=== PATIENT | female | born 1945 | race Caucasian/White ===

== ENCOUNTER 2017-10-14 09:06 | Outpatient (CLI) | payer MEDICARE ==
--- NOTE | 2017-10-14 09:52 | RAD ---
THORACIC SPINE THREE VIEWS: History: Chronic back pain. FINDINGS: There are twelve thoracic type vertebrae. Pedicles are intact. Cervicothoracic junction is maintained . Vertebral body height and alignment are within normal limits. Scattered small Schmorl's nodes are a pparent. There is osteophytosis throughout the vertebral bodies and facets. Calcification is apparent within the aorta. There is rightward convex curvature of the thoracolumbar junction. IMPRESSION: 1. Thoracic spondylosis. No evidence of compression fracture. 2. Atherosclerosis. POS: PANFILO
== END 2017-10-14 09:07 | disposition home or self-care (01) ==
LOC: BURRAD 09:06
PROVIDERS: ATTEND Family Medicine
DX: M54.6 Pain in thoracic spine (principal); M47.894 Other spondylosis, thoracic region; I70.90 Unspecified atherosclerosis
CPT/HCPCS: 72070

== ENCOUNTER 2021-10-24 10:52 | Emergency (ER) | payer MEDICARE ==
[2021-10-24 12:48] LABS: #Monocytes 0.6 thou/uL (0.11-0.59); #Neutrophils 5.3 thou/uL (1.40-6.50); %Basophils 0.2 % (0.0-1.0); %Eosinophils 0.2 % (0.0-10.0); %Monocytes 8.8 % (0.0-10.0); %Neutrophils 76.8 % (42.0-75.0); Hemoglobin 15.1 g/dL (12.0-16.0); Mean Corpuscular HGB CONC 33.2 g/dL (32.0-36.0); Mean Corpuscular Hemoglobin 30.1 pg (27.0-31.0); Mean Corpuscular Volume 90.6 fL (78.0-98.0); Mean Platelet Volume 7.1 fL (7.4-10.4); Platelet Count 151 thou/uL (130-400); RBC Distribution Width 12.1 % (11.5-14.5); Red Blood Cell (RBC) Count 5.02 mill/uL (4.20-5.40); White Blood Cell (WBC) Count 6.9 thou/uL (4.8-10.8)
[2021-10-24 12:56] LABS: Bilirubin Negative (Negative); Blood, Urine Trace (Negative); Clarity Cloudy (Clear); Glucose, Urine (Dipstick) Negative (Negative); Ketone, Urine 15 mg/dL (Negative); Leukocyte Negative (Negative); Nitrite Positive (Negative); Protein, Urine (Dipstick) 100 mg/dL (Neg-Trace); Urobilinogen 0.2 mg/dL (Less than 2); pH, Urine 5.5 (5.0-9.0)
[2021-10-24 13:05] LABS: ALT (SGPT) 29 U/L (8-55); AST (SGOT) 43 U/L (5-34); Albumin 3.7 g/dL (3.4-4.8); Alkaline Phosphatase 73 U/L (40-110); Anion Gap 15 mmol/L (10-20); BUN (Urea Nitrogen) 17 mg/dL (9.8-20.1); Bilirubin, Total 0.4 mg/dL (0.2-1.2); Calc. Creatinine Clearance 0 mL/min (70-130); Calcium 8.8 mg/dL (7.8-10.44); Carbon Dioxide 25 mmol/L (23-31); Chloride 98 mmol/L (98-107); Globulin 3.5 g/dL (2.4-3.5); Glucose 122 mg/dL (83-110); Potassium 3.5 mmol/L (3.5-5.1); Protein, Total 7.2 g/dL (5.8-8.1); Sodium 134 mmol/L (136-145)
[2021-10-24 13:33] LABS: RBC/HPF 0-3 HPF (0-3)
[2021-10-24 13:34] LABS: Bacteria/HPF 3+ HPF (None Seen); Transitional Epithelial 0-3 HPF (None Seen)
== END 2021-10-24 14:32 | disposition home or self-care (01) ==
LOC: BURERS 10:52
DX: U07.1 COVID-19 (principal); E86.0 Dehydration; I10 Essential (primary) hypertension; J44.9 Chronic obstructive pulmonary disease, unspecified; E05.90 Thyrotoxicosis, unspecified without thyrotoxic crisis or storm
CPT/HCPCS: 36415; 71045; 80053; 81003; 81015; 83605; 85025

== ENCOUNTER 2022-11-11 09:37 | Outpatient (CLI) | payer MEDICARE | END 2022-11-11 09:38 | disposition home or self-care (01) | LOC: BURCT 09:37 | PROVIDERS: ATTEND Family Medicine | DX: J44.9 Chronic obstructive pulmonary disease, unspecified (principal); R10.84 Generalized abdominal pain | CPT/HCPCS: 71046; 74177 ==

== ENCOUNTER 2023-08-02 11:34 | Outpatient (CLI) | payer MEDICARE | END 2023-08-02 11:35 | disposition home or self-care (01) | LOC: BURRAD 11:34 | PROVIDERS: ATTEND Family Medicine | DX: J44.9 Chronic obstructive pulmonary disease, unspecified (principal); R10.84 Generalized abdominal pain; R19.5 Other fecal abnormalities | CPT/HCPCS: 71046; 74018 ==